=== PATIENT | male | born 1950 | race Caucasian/White ===

== ENCOUNTER 2017-01-03 12:02 | Outpatient (CLI) | payer MEDICARE, BC ==
--- NOTE | 2017-01-03 12:59 | Diagnostic Imaging Report ---
Indication: Headache, Lump on head Technique: Spiral acquisitions obtained through the abdomen and pelvis. No oral or IV contrast utilized, per urinary stone protocol. Multiplanar reconstructions were generated. Total dose length product 1453 mGycm. CTDIvol(s) 70 mGy. Dose reduction achieved using automated exposure control Comparison: Findings: There is a small bony protrusion from the outer table of the frontal skull, just to the left of midline, measures approximately 9 mm transverse by approximately 2 mm thick. No other calvarial abnormalities. No acute intracranial hemorrhage or edema. No mass effect or midline shift. Normal for age ventricles and extra axial CSF spaces. Normal charles-white differentiation. Visualized orbits and sinuses are unremarkable. Impression: Palpable abnormalities is demonstrated to represent a small bony protrusion off of the outer table of the skull. This may represent a small osteoma, could just be some focal developmental periosteal thickening, or could be due to old trauma. Appearance is benign No other acute or significant abnormality. Negative for acute intracranial bleed or mass effect The CT scanner at [facility] is accredited by the [employer] and the scans are performed using protocols designed to limit radiation exposure to as low as reasonably achievable to attain images of sufficient resolution adequate for diagnostic evaluation. Brain on
== END 2017-01-03 14:02 | disposition home or self-care (01) ==
LOC: CAT 12:02
DX: R51 Headache (principal); R22.0 Localized swelling, mass and lump, head
CPT/HCPCS: 70450

== ENCOUNTER 2017-02-16 05:37 | Day surgery (SDC) | payer MEDICARE, BC ==
[2017-02-16] VITALS (8 sets, daily range): BP systolic 108–142; BP diastolic 53–98
[~2017-02-16] VITALS: Ht 182.9 cm; Wt 81.2 kg
[~2017-02-16 05:37] MED LIST: AMLODIPINE BESY10 MG ORAL
[2017-02-16] MEDS ORDERED: Sterile Water Irrig 1000ml IRRIG ONE (05:38)
[2017-02-16] MEDS ORDERED: fentaNYL 100 mcg/2 mL IV ONE (05:38)
[2017-02-16] MEDS ORDERED: ePHEDrine 50mg/ml Inj ONE (05:38)
[2017-02-16] MEDS ORDERED: LR 1000ml ONE (05:38)
[2017-02-16] MEDS ORDERED: Propofol 10mg/ml 20ml IV ONE (05:38)
[2017-02-16] MEDS ORDERED: Midazolam 2mg/2ml Inj ONE (05:38)
[2017-02-16] MEDS ORDERED: NS Irrig 1000ml ONE (05:38)
[2017-02-16] MEDS ORDERED: ceFAZolin 2gm/50ml Premix 50 ML IVPB ONE (06:00)
[2017-02-16] MEDS ORDERED: Lidocaine 1% 10mg/ml/Epi 0.005mg/ml 30ml vial INJ ONE (06:24)
[2017-02-16] MEDS ORDERED: Povidone-Iodine 5% opth solution ONE (07:04)
[2017-02-16] MEDS ORDERED: NS Irrig 1000ml IRRIG ONE (07:05)
--- NOTE | 2017-02-16 07:09 | Pre-Procedure Note/Attestation ---
Pre-Procedure Note/Attestation Complete Prior to Procedure Planned Procedure: not applicable Procedure Narrative: Resection of bony mass forehead Indications for Procedure Pre-Operative Diagnosis: Bony mass forehead Attestation I attest that I discussed the nature of the procedure; its benefits; risks and complications; and alternatives (and the risks and benefits of such alternatives ), prior to the procedure, with the patient (or the patient's legal goodwill representative). I attest that, if there was a reasonable possibility of needing a blood transfusion, the patient (or the patient's legal goodwill representative) was given the [facility] standardized written summary, pursuant to the [place] Blood Safety Act ([place] Health and Safety Code # 1645, as amended). I attest that I re-evaluated the patient just prior to the surgery and that there has been no change in the patient's H&P, except as documented below: JOCE VASQUEZ Feb 16, 2017 07:09
--- NOTE | 2017-02-16 07:34 | Anethesia Preoperative Eval ---
Anesthesia Pre-op PMH/ROS General Date of Evaluation: Feb 16, 2017 Time of Evaluation: 06:30 ASA Score: ASA 4 Mallampati Score Class I : Soft palate, uvula, fauces, pillars visible Class II: Soft palate, uvula, fauces visible Class III: Soft palate, base of uvula visible Class IV: Only hard plate visible Mallampati Classification: Class I Allergies: Coded Allergies: No Known Allergies (Unverified , 02/15/17) Past Medical History Cardiovascular: Reports: arrhythmia, other - AAA Anesthesia Pre-op Phys. Exam Physician Exam Last Vital Signs Date Time Temp Pulse Resp B/P Pulse Ox O2 Delivery O2 Flow Rate FiO2 02/16/17 06:09 97.0 60 20 142/86 97 Room Air Pk Colon MD Feb 16, 2017 07:34
[2017-02-16] MEDS ORDERED: fentaNYL 100 mcg/2 mL IV PRN (07:45)
[2017-02-16] MEDS ORDERED: Ketorolac 30mg Inj IV PRN (07:45)
--- NOTE | 2017-02-16 08:45 | Brief Operative Note ---
Immediate Post Operative Note Operative Note Pre-op Diagnosis: Bony mass forehead Procedure: Shave excision of bony mass of forehead Post-op Diagnosis: same as pre-op Surgeon: Jazmine Anesthesiologist: Francine Prater Anesthesia: general Specimen: none Complications: none Condition: stable Estimated Blood Loss: none Drains: none Implant(s) used?: No JOCE VASQUEZ Feb 16, 2017 08:45
--- NOTE | 2017-02-16 09:18 | Anethesia Preoperative Eval ---
Anesthesia Pre-op PMH/ROS General Date of Evaluation: Feb 16, 2017 Time of Evaluation: 07:00 Anesthesiologist: Moi ASA Score: ASA 3 Mallampati Score Class I : Soft palate, uvula, fauces, pillars visible Class II: Soft palate, uvula, fauces visible Class III: Soft palate, base of uvula visible Class IV: Only hard plate visible Mallampati Classification: Class I Surgeon: Jazmine Diagnosis: Forehead mass Surgical Procedure: Excision of forehead mass Anesthesia History: none Family History: no anesthesia problems Allergies: Coded Allergies: No Known Allergies (Unverified , 02/15/17) Medications: see eMAR Past Medical History Cardiovascular: Reports: HTN - Aortic aneurysm 4.2 cm, arrhythmia - afib Gastrointestinal/Genitourinary: Reports: GERD - well controlled Other: other Anesthesia Pre-op Phys. Exam Physician Exam Last Vital Signs Date Time Temp Pulse Resp B/P Pulse Ox O2 Delivery O2 Flow Rate FiO2 02/16/17 09:05 84 25 115/57 95 Nasal Cannula 3.0 02/16/17 08:44 97.9 Francine Prater M.D. Feb 16, 2017 09:18
--- NOTE | 2017-02-16 09:22 | Immediate Post-Op Evaluation ---
Immediate Post-Op Evalulation Immediate Post-Op Evalulation Procedure: Excision of forehead mass Date of Evaluation: Feb 16, 2017 Time of Evaluation: 09:19 IV Fluids: 400 Blood Products: none Estimated Blood Loss: minimal Urinary Output: not recoreded, no joseph Blood Pressure Systolic: 125 Blood Pressure Diastolic: 72 Pulse Rate: 70 Respiratory Rate: 19 O2 Sat by Pulse Oximetry: 99 Temperature (Fahrenheit): 97.8 Pain Score (1-10): 2 Nausea: No Vomiting: No Complications none Patient Status: awake - able to participate in postop assessment, reacts, patent - unlabored spontaneous respiration, extubated, none Hydration Status: adequate Dru g Cefazolin Given Within 1 Hr of Incision: Yes Time Given: 07:10 Francine Prater M.D. Feb 16, 2017 09:22
--- NOTE | 2017-02-16 17:30 | Operative Note - Dictated ---
DATE OF OPERATION: 02/16/2017 SURGEON: Twin Lucero M.D. ANESTHESIOLOGIST: Francine Prater MD . PREOPERATIVE DIAGNOSIS: Bony mass with the left frontal skull. POSTOPERATIVE DIAGNOSIS: Bony mass with the left frontal skull. OPERATION: Excision of bony protrusion of left frontal skull. ANESTHESIA: General anesthesia. OPERATIVE INDICATIONS: This is a 67-year-old male who has had bony protrusion in his left frontal skull that had been stable for many years. It is causing him an undesirable convexity and a CT scan was performed which demonstrated 9 mm wide by 2 mm height protrusion with no intracranial extension. OPERATIVE PROCEDURE: The patient was seen in the preoperative area and the operative plan was again discussed and agreed upon. Operative marking was made. An intravenous was placed. He was taken back back to the operating room. An operative plan was devised and agreed upon. The photographs informed consent were obtained. Once he was medically cleared. He was scheduled for elective surgery. OPERATIVE PROCEDURE: The patient was seen in the preoperative area. The operative plan was again discussed and agreed upon. Operative markings were made. An intravenous was placed. He was taken back to the operating room. The patient is placed on the operating table in supine position. Once general anesthesia was induced. His anesthesia was induced in his bilateral extremities. His forehead and face were prepped with 5% ophthalmic Betadine. Once time-out was performed to 3 mL of 1% lidocaine with 1:100,000 epinephrine was injected along the incision line in the operative field, and using a #15 blade, an incision was made through a forehead rhyted and dissection proceeded down to the frontalis muscle. This was transected horizontally to which the level of periosteum. Periosteal elevator was then used to fully identify the protrusion and once this was identified and the extent of the protrusion was visualized. Pineapple bur was used to shave this down. This was completed by then using a rasp to smooth the surface and contours. Hemostasis was then carefully obtained and the incisions were then closed with a 4-0 Vicryl and the front muscle by 4-0 Monocryl in the deep dermis 4-0 Monocryl in a running, subcuticular fashion. Dermabond was then used followed by a Band-Aid and the patient was extubated and taken to the recovery room stable condition. No complications. EBL was essentially zero. No specimens. Twin Lucero M.D. DR: VASQUEZ JOB#: [id number] CC: PIETRO
== END 2017-02-16 10:13 | disposition home or self-care (01) ==
LOC: SUR 05:37
DX: M89.9 Disorder of bone, unspecified (principal); I10 Essential (primary) hypertension; K21.9 Gastro-esophageal reflux disease without esophagitis; I48.91 Unspecified atrial fibrillation; E66.3 Overweight; G62.9 Polyneuropathy, unspecified; N40.0 Benign prostatic hyperplasia without lower urinary tract symptoms; I71.4 Abdominal aortic aneurysm, without rupture; E78.1 Pure hyperglyceridemia; I07.1 Rheumatic tricuspid insufficiency
CPT/HCPCS: 21029; J0690; J2250; J2405; J2704; J3010; J7120; 94003; 94150